=== PATIENT | male | born 1985 | race Two or more races ===

== ENCOUNTER 2018-08-26 01:07 | Inpatient (IN) | payer MEDICAID ==
[~2018-08-26] VITALS: Ht 177.8 cm; Wt 108.2 kg
[2018-08-26 01:28] LABS: EOSINOPHILS % (AUTO) 4.8 % (1.0-6.0); HEMOGLOBIN 13.2 g/dL (13.5-17.5); LYMPHOCYTES # (AUTO) 1.8 K/uL (1.0-4.8); MEAN CORPUSCULAR HEMOGLOBIN 28.1 pg (26.0-34.0); MEAN CORPUSCULAR VOLUME 85 fL (80-100); MONOCYTES % (AUTO) 12.3 % (2.0-9.0); NEUTROPHILS # (AUTO) 4.7 K/uL (1.8-7.7); NEUTROPHILS % (AUTO) 58.9 % (40.0-70.0); PLATELET COUNT (AUTO) 216 K/uL (150-450)
[2018-08-26 01:38] LABS: ANION GAP 7 mmol/L (8-16); CALCIUM, TOTAL 8.3 mg/dL (8.8-10.5); CARBON DIOXIDE 27 mmol/L (22-29); CHLORIDE 107 mmol/L (98-107); CREATININE 0.82 mg/dL (0.60-1.30); GLOMERULAR FILTR. RATE CALC > 60 mL/min (>60); GLUCOSE,RANDOM 116 mg/dL (70-110); POTASSIUM 3.9 mmol/L (3.5-5.1); SODIUM SERUM 141 mmol/L (136-145); UREA NITROGEN, BLOOD 15 mg/dL (7-18)
[2018-08-26 01:43] LABS: ACETAMINOPHEN < 2 mcg/mL (10-30); ALANINE AMINOTRANSFERASE 71 U/L (12-78); ALBUMIN 3.5 g/dL (3.4-5.0); ALKALINE PHOSPHATASE 92 U/L (46-116); ASPARTATE AMINOTRANSFERASE 28 U/L (15-37); BILIRUBIN,TOTAL 0.2 mg/dL (0.1-1.0); TOTAL PROTEIN, SERUM 6.7 g/dL (6.4-8.2)
[2018-08-26] MEDS ORDERED: SODIUM CHLORIDE 0.9% 1,000 ML IV ONE (01:45)
[2018-08-26 01:53] LABS: SALICYLATE 1.2 mg/dL (2.8-20.0)
[2018-08-26] MEDS ORDERED: HALOPERIDOL 5 MG TABLET PO PRN (03:00)
[2018-08-26] MEDS ORDERED: ZOLPIDEM TARTRATE 10 MG TABLET PO PRN (03:00)
[2018-08-26 04:14] LABS: APPEARANCE,URINE CLEAR (CLEAR); BILIRUBIN,URINE NEGATIVE (NEGATIVE); GLUCOSE, URINE (UA) NEGATIVE (NEGATIVE); KETONES,URINE NEGATIVE (NEGATIVE); LEUKOCYTE ESTERASE ,URINE NEGATIVE (NEGATIVE); NITRATE,URINE NEGATIVE (NEGATIVE); OCCULT BLOOD,URINE NEGATIVE (NEGATIVE); PH,URINE 5.5 (5.0-8.0); PROTEIN,URINE NEGATIVE (NEGATIVE); UROBILINOGEN,URINE 0.2 mg/dL (<=1.0)
[2018-08-26 04:18] LABS: AMPHET/METH SCREEN,URINE NEGATIVE (NEGATIVE); BARBITURATE SCREEN, URINE NEGATIVE (NEGATIVE); BENZODIAZEPINES SCREEN,URINE NEGATIVE (NEGATIVE); CANNABINOID SCREEN,URINE NEGATIVE (NEGATIVE); COCAINE SCREEN,URINE NEGATIVE (NEGATIVE); METHADONE SCREEN, URINE NEGATIVE (NEGATIVE); OPIATE SCREEN,URINE NEGATIVE (NEGATIVE); PHENCYCLIDINE SCREEN,URINE NEGATIVE (NEGATIVE)
[2018-08-26 05:39] VITALS: BP 134/82
[2018-08-26 08:36] VITALS: BP 131/64
[2018-08-26] MEDS: SERTRALINE HCL 50 MG TABLET PO SCH (15:30)
[2018-08-26] MEDS: IBUPROFEN 400 MG TABLET PO PRN (16:21)
[2018-08-26 16:56] VITALS: BP 132/78
[2018-08-27 00:29] VITALS: BP 134/80
[2018-08-27] MEDS: IBUPROFEN 400 MG TABLET PO PRN ×2 (00:30→08:44)
[2018-08-27] MEDS: LORazepam 2 MG TABLET PO PRN (01:30)
[2018-08-27 07:03] LABS: HEMOGLOBIN A1C 5.3 % (4.5-6.2)
[2018-08-27 07:13] LABS: CHOL/HDL RATIO 2.7 (4.2-7.3); FREE T4 (FREE THYROXINE) 0.77 ng/dL (0.76-1.46); THYROID STIMULATING HORMONE 1.13 uIU/mL (0.36-3.74)
[2018-08-27 08:12] VITALS: BP 125/86
[2018-08-27] MEDS: SERTRALINE HCL 50 MG TABLET PO SCH (08:19)
[2018-08-27 08:40] VITALS: BP 125/86
[2018-08-27] MEDS: PHENYTOIN 100 MG/4 ML SUSPENSION UDCUP PO SCH (16:28)
[2018-08-27] MEDS: FLUTICASONE PROPIONATE 50 MCG/SPRAY 16 GM NASAL SPRAY NASAL SCH (16:28)
[2018-08-27] MEDS: GABAPENTIN 300 MG CAPSULE PO SCH (16:29)
[2018-08-27] MEDS: LevETIRAcetam 500 MG TABLET PO SCH (16:29)
[2018-08-27 16:52] VITALS: BP 132/80
[2018-08-27 20:09] VITALS: BP 126/72
[2018-08-27] MEDS: IBUPROFEN 600 MG TABLET PO PRN (20:09)
[2018-08-28 07:13] LABS: BASOPHILS % (AUTO) 0.8 % (0.0-2.0); EOSINOPHILS % (AUTO) 5.1 % (1.0-6.0); HEMATOCRIT 42.1 % (41-53); HEMOGLOBIN 14.1 g/dL (13.5-17.5); LYMPHOCYTES # (AUTO) 1.6 K/uL (1.0-4.8); LYMPHOCYTES % (AUTO) 27.2 % (22.0-44.0); MEAN CORPUSCULAR HEMOGLOBIN 28.7 pg (26.0-34.0); MEAN CORPUSCULAR HGB CONC 33.6 G/dL (31.0-37.0); MEAN CORPUSCULAR VOLUME 86 fL (80-100); MONOCYTES # (AUTO) 0.8 K/uL (0.1-1.0); MONOCYTES % (AUTO) 14.3 % (2.0-9.0); NEUTROPHILS # (AUTO) 3.1 K/uL (1.8-7.7); NEUTROPHILS % (AUTO) 52.6 % (40.0-70.0); PLATELET COUNT (AUTO) 225 K/uL (150-450); RED BLOOD CELL COUNT(AUTO) 4.92 MIL/uL (4.50-5.90); RED CELL DISTRIBUTION WIDTH 12.6 % (11.5-14.5)
[2018-08-28 07:25] LABS: ALANINE AMINOTRANSFERASE 59 U/L (12-78); ALBUMIN 3.7 g/dL (3.4-5.0); ALKALINE PHOSPHATASE 104 U/L (46-116); AMYLASE 48 U/L (25-115); ANION GAP 7 mmol/L (8-16); ASPARTATE AMINOTRANSFERASE 23 U/L (15-37); BILIRUBIN,TOTAL 0.3 mg/dL (0.1-1.0); CALCIUM, TOTAL 8.9 mg/dL (8.8-10.5); CARBON DIOXIDE 28 mmol/L (22-29); CHLORIDE 101 mmol/L (98-107); CREATININE 0.75 mg/dL (0.60-1.30); GLOMERULAR FILTR. RATE CALC > 60 mL/min (>60); GLUCOSE,RANDOM 105 mg/dL (70-110); LIPASE 146 U/L (73-393); SODIUM SERUM 136 mmol/L (136-145); UREA NITROGEN, BLOOD 16 mg/dL (7-18)
[2018-08-28 07:40] LABS: TOTAL PROTEIN, SERUM 6.9 g/dL (6.4-8.2)
[2018-08-28] MEDS: LevETIRAcetam 500 MG TABLET PO SCH ×2 (09:00→16:55)
[2018-08-28] MEDS: SERTRALINE HCL 50 MG TABLET PO SCH (09:00)
[2018-08-28] MEDS: PHENYTOIN 100 MG/4 ML SUSPENSION UDCUP PO SCH ×3 (09:00→16:54)
[2018-08-28] MEDS: GABAPENTIN 300 MG CAPSULE PO SCH ×3 (09:00→16:55)
[2018-08-28] MEDS: LORazepam 2 MG TABLET PO PRN (09:00)
[2018-08-28] MEDS: FLUTICASONE PROPIONATE 50 MCG/SPRAY 16 GM NASAL SPRAY NASAL SCH ×2 (09:00→16:54)
[2018-08-28 09:45] VITALS: BP 121/69
[2018-08-28] MEDS: IBUPROFEN 600 MG TABLET PO PRN ×2 (09:47→20:57)
[2018-08-28 16:56] VITALS: BP 117/92
[2018-08-28] MEDS: TraMADol HCL 50 MG TABLET PO PRN ×2 (16:56→23:44)
[2018-08-28 20:57] VITALS: BP 120/48
[2018-08-28 22:52] VITALS: BP 117/92
[2018-08-28 23:45] VITALS: BP 132/87
[2018-08-29 01:40] VITALS: BP 130/79
[2018-08-29] MEDS: ACETAMINOPHEN 325 MG TABLET PO PRN ×2 (01:41→16:51)
[2018-08-29 03:45] VITALS: BP 132/81
[2018-08-29] MEDS: IBUPROFEN 600 MG TABLET PO PRN ×2 (03:47→15:02)
[2018-08-29] MEDS: TraMADol HCL 50 MG TABLET PO PRN ×3 (07:28→19:28)
[2018-08-29] MEDS: GABAPENTIN 300 MG CAPSULE PO SCH ×3 (09:00→16:49)
[2018-08-29] MEDS: SERTRALINE HCL 100 MG TABLET PO SCH (09:00)
[2018-08-29] MEDS: FLUTICASONE PROPIONATE 50 MCG/SPRAY 16 GM NASAL SPRAY NASAL SCH ×2 (09:00→17:22)
[2018-08-29] MEDS: PHENYTOIN 100 MG/4 ML SUSPENSION UDCUP PO SCH ×3 (09:00→16:49)
[2018-08-29] MEDS: LevETIRAcetam 500 MG TABLET PO SCH ×2 (09:01→16:49)
[2018-08-29 09:07] VITALS: BP 116/72
[2018-08-29 13:30] VITALS: BP 132/75
[2018-08-29 19:33] VITALS: BP 151/92
[2018-08-29] MEDS: LORazepam 2 MG TABLET PO PRN (20:28)
[2018-08-30 03:28] VITALS: BP 132/100
[2018-08-30] MEDS: TraMADol HCL 50 MG TABLET PO PRN ×4 (03:28→22:37)
[2018-08-30 06:35] VITALS: BP 130/86
[2018-08-30] MEDS: ACETAMINOPHEN 325 MG TABLET PO PRN (06:36)
[2018-08-30] MEDS: FLUTICASONE PROPIONATE 50 MCG/SPRAY 16 GM NASAL SPRAY NASAL SCH ×2 (09:00→17:20)
[2018-08-30] MEDS: SERTRALINE HCL 100 MG TABLET PO SCH (09:00)
[2018-08-30] MEDS: GABAPENTIN 300 MG CAPSULE PO SCH ×3 (09:02→17:20)
[2018-08-30] MEDS: LevETIRAcetam 500 MG TABLET PO SCH ×2 (09:02→17:20)
[2018-08-30] MEDS: PHENYTOIN 100 MG/4 ML SUSPENSION UDCUP PO SCH ×3 (09:03→17:20)
[2018-08-30 09:14] VITALS: BP 141/79
[2018-08-30 09:30] VITALS: BP 141/79
[2018-08-30] MEDS: LORazepam 2 MG TABLET PO PRN (13:09)
[2018-08-30] MEDS: IBUPROFEN 600 MG TABLET PO PRN (15:12)
[2018-08-30] MEDS ORDERED: LORazepam 2 MG/ML VIAL ONE (15:25)
[2018-08-30] MEDS ORDERED: HALOPERIDOL LACTATE 5 MG/ML VIAL ONE (15:26)
[2018-08-30] MEDS ORDERED: DiphenhydrAMINE HCL 50 MG/ML VIAL ONE (15:26)
[2018-08-30] MEDS ORDERED: LORazepam 2 MG/ML VIAL IM ONE (15:30)
[2018-08-30] MEDS ORDERED: HALOPERIDOL LACTATE 5 MG/ML VIAL IM ONE (15:30)
[2018-08-30] MEDS ORDERED: DiphenhydrAMINE HCL 50 MG/ML VIAL IM ONE (15:30)
[2018-08-30] MEDS: LITHIUM CARBONATE 300 MG CAPSULE PO SCH (20:19)
[2018-08-30 22:37] VITALS: BP 139/95
[2018-08-31] MEDS: IBUPROFEN 600 MG TABLET PO PRN ×2 (01:13→23:56)
[2018-08-31 01:14] VITALS: BP 133/85
[2018-08-31] MEDS: ACETAMINOPHEN 325 MG TABLET PO PRN ×2 (02:17→17:05)
[2018-08-31] MEDS: GABAPENTIN 300 MG CAPSULE PO SCH ×3 (08:47→16:06)
[2018-08-31] MEDS: TraMADol HCL 50 MG TABLET PO PRN ×2 (08:50→14:58)
[2018-08-31] MEDS: LevETIRAcetam 500 MG TABLET PO SCH ×2 (09:00→16:06)
[2018-08-31] MEDS: FLUTICASONE PROPIONATE 50 MCG/SPRAY 16 GM NASAL SPRAY NASAL SCH ×2 (09:00→16:06)
[2018-08-31] MEDS: PHENYTOIN 100 MG/4 ML SUSPENSION UDCUP PO SCH ×3 (09:00→16:06)
[2018-08-31] MEDS ORDERED: SERTRALINE HCL 50 MG TABLET PO SCH (09:00)
[2018-08-31] MEDS ORDERED: TraMADol HCL 50 MG TABLET PO PRN (15:30)
[2018-08-31 15:55] VITALS: BP 142/95
[2018-08-31 19:01] VITALS: BP 149/90
[2018-08-31] MEDS ORDERED: TraMADol HCL 50 MG TABLET PO ONE (19:39)
[2018-08-31] MEDS: LITHIUM CARBONATE 300 MG CAPSULE PO SCH (20:18)
[2018-08-31 23:58] VITALS: BP 138/81
[2018-09-01] MEDS: TraMADol HCL 50 MG TABLET PO PRN ×4 (00:57→19:56)
[2018-09-01] MEDS: GABAPENTIN 300 MG CAPSULE PO SCH ×3 (07:44→16:12)
[2018-09-01] MEDS: LevETIRAcetam 500 MG TABLET PO SCH ×2 (07:44→16:12)
[2018-09-01] MEDS: FLUTICASONE PROPIONATE 50 MCG/SPRAY 16 GM NASAL SPRAY NASAL SCH ×2 (07:46→16:11)
[2018-09-01] MEDS: PHENYTOIN 100 MG/4 ML SUSPENSION UDCUP PO SCH ×3 (07:46→16:12)
[2018-09-01] MEDS: IBUPROFEN 600 MG TABLET PO PRN (09:33)
[2018-09-01 16:13] VITALS: BP 133/94
[2018-09-01] MEDS: ACETAMINOPHEN 325 MG TABLET PO PRN (16:13)
[2018-09-01] MEDS: LITHIUM CARBONATE 300 MG CAPSULE PO SCH (21:22)
[2018-09-02 02:10] VITALS: BP 134/85
[2018-09-02] MEDS: TraMADol HCL 50 MG TABLET PO PRN ×4 (02:10→21:04)
[2018-09-02] MEDS: PHENYTOIN 100 MG/4 ML SUSPENSION UDCUP PO SCH ×3 (08:24→15:58)
[2018-09-02] MEDS: FLUTICASONE PROPIONATE 50 MCG/SPRAY 16 GM NASAL SPRAY NASAL SCH ×2 (08:24→15:56)
[2018-09-02] MEDS: LevETIRAcetam 500 MG TABLET PO SCH ×2 (08:24→15:56)
[2018-09-02] MEDS: GABAPENTIN 300 MG CAPSULE PO SCH ×3 (08:24→15:56)
[2018-09-02 08:28] VITALS: BP 131/76
[2018-09-02] MEDS ORDERED: LITH300C3 PO (14:32)
[2018-09-02] MEDS ORDERED: ARIP400S3 IM (14:32)
[2018-09-02] MEDS ORDERED: GABA-531 PO (14:32)
[2018-09-02] MEDS ORDERED: FLUT16H NASAL (14:40)
[2018-09-02] MEDS ORDERED: PHENY100 PO (14:40)
[2018-09-02] MEDS ORDERED: LEVE500T53 PO (14:40)
[2018-09-02 16:00] VITALS: BP 150/70
[2018-09-02] MEDS: LITHIUM CARBONATE 300 MG CAPSULE PO SCH (21:01)
[2018-09-02 21:06] VITALS: BP 139/65
[2018-09-03] MEDS: TraMADol HCL 50 MG TABLET PO PRN ×2 (06:27→12:27)
[2018-09-03 06:28] VITALS: BP 127/71
[2018-09-03] MEDS: PHENYTOIN 100 MG/4 ML SUSPENSION UDCUP PO SCH ×2 (08:36→12:22)
[2018-09-03] MEDS: GABAPENTIN 300 MG CAPSULE PO SCH ×2 (08:36→12:21)
[2018-09-03] MEDS: LevETIRAcetam 500 MG TABLET PO SCH (08:37)
[2018-09-03] MEDS: LORazepam 2 MG TABLET PO PRN (08:37)
[2018-09-03] MEDS: FLUTICASONE PROPIONATE 50 MCG/SPRAY 16 GM NASAL SPRAY NASAL SCH (08:37)
[2018-09-03 10:39] VITALS: BP 119/93
[2018-09-03] MEDS ORDERED: LevETIRAcetam 500 MG TABLET PO ONE (13:30)
[2018-09-05] MEDS ORDERED: ARIPiprazole ER SUSPENSION 400 MG PRE-FILLED DUAL CHAMBER SYRINGE IM SCH (09:00)
== END 2018-09-03 14:24 | disposition home or self-care (01) | DRG 751 ==
LOC: EMS 01:07 → 3EC 05:00 → 3EI 08-27 15:30 → 3EC 08-30 15:58
PROVIDERS: ADMIT Psychiatry & Neurology Psychiatry; ATTEND Psychiatry & Neurology Psychiatry
DX: F33.3 Major depressive disorder, recurrent, severe with psychotic symptoms (principal); G40.909 Epilepsy, unspecified, not intractable, without status epilepticus; D64.9 Anemia, unspecified; F10.10 Alcohol abuse, uncomplicated; F12.90 Cannabis use, unspecified, uncomplicated; F17.210 Nicotine dependence, cigarettes, uncomplicated; T39.1X2A Poisoning by 4-Aminophenol derivatives, intentional self-harm, initial encounter; Y92.89 Other specified places as the place of occurrence of the external cause; Z90.49 Acquired absence of other specified parts of digestive tract; Z91.5 Personal history of self-harm; Z79.899 Other long term (current) drug therapy; Z28.21 Immunization not carried out because of patient refusal
CPT/HCPCS: 83036; 84439; 84443; 93005; 96360; G0480; G0481; J1200; J1630; J2060; J7030

== ENCOUNTER 2018-10-29 21:52 | Emergency (ER) | payer MEDICAID ==
[~2018-10-29] VITALS: Ht 177.8 cm; Wt 95.5 kg
[~2018-10-29 21:52] MED LIST: ARIP400S3 IM; FLUT16H NASAL; GABA-531 PO; LEVE500T53 PO; LITH300C3 PO; PHENY100 PO
[2018-10-29 22:18] VITALS: BP 150/94
[2018-10-29 22:47] LABS: BASOPHILS % (AUTO) 0.9 % (0.0-2.0); EOSINOPHILS % (AUTO) 2.5 % (1.0-6.0); HEMATOCRIT 43.7 % (41-53); LYMPHOCYTES # (AUTO) 1.6 K/uL (1.0-4.8); LYMPHOCYTES % (AUTO) 14.9 % (22.0-44.0); MEAN CORPUSCULAR HEMOGLOBIN 28.4 pg (26.0-34.0); MEAN CORPUSCULAR HGB CONC 34.2 G/dL (31.0-37.0); MEAN CORPUSCULAR VOLUME 83 fL (80-100); MONOCYTES # (AUTO) 0.8 K/uL (0.1-1.0); MONOCYTES % (AUTO) 7.4 % (2.0-9.0); NEUTROPHILS # (AUTO) 7.7 K/uL (1.8-7.7); NEUTROPHILS % (AUTO) 74.3 % (40.0-70.0); PLATELET COUNT (AUTO) 343 K/uL (150-450); RED BLOOD CELL COUNT(AUTO) 5.27 MIL/uL (4.50-5.90)
[2018-10-29 22:57] LABS: ANION GAP 7 mmol/L (8-16); CALCIUM, TOTAL 9.5 mg/dL (8.8-10.5); CARBON DIOXIDE 31 mmol/L (22-29); CHLORIDE 105 mmol/L (98-107); CREATININE 1.27 mg/dL (0.60-1.30); GLOMERULAR FILTR. RATE CALC > 60 mL/min (>60); GLUCOSE,RANDOM 120 mg/dL (70-110); POTASSIUM 4.1 mmol/L (3.5-5.1); SODIUM SERUM 143 mmol/L (136-145); UREA NITROGEN, BLOOD 16 mg/dL (7-18)
[2018-10-29 23:05] LABS: ALANINE AMINOTRANSFERASE 68 U/L (12-78); ALKALINE PHOSPHATASE 105 U/L (46-116); ASPARTATE AMINOTRANSFERASE 28 U/L (15-37); BILIRUBIN,TOTAL 0.3 mg/dL (0.1-1.0); LIPASE 214 U/L (73-393); TOTAL PROTEIN, SERUM 7.7 g/dL (6.4-8.2)
== END 2018-10-30 01:38 | disposition left against medical advice (07) ==
LOC: EMS 21:52
DX: R10.9 Unspecified abdominal pain (principal); Z53.21 Procedure and treatment not carried out due to patient leaving prior to being seen by health care provider

== ENCOUNTER 2018-11-11 10:08 | Emergency (ER) | payer MEDICAID ==
[~2018-11-11] VITALS: Ht 175.3 cm; Wt 95.0 kg
[2018-11-11 10:25] VITALS: BP 133/84
== END 2018-11-11 11:01 | disposition left against medical advice (07) ==
LOC: EMS 10:10
DX: S61.012A Laceration without foreign body of left thumb without damage to nail, initial encounter (principal); F91.9 Conduct disorder, unspecified; F32.9 Major depressive disorder, single episode, unspecified; X58.XXXA Exposure to other specified factors, initial encounter; Y93.89 Activity, other specified; Y92.89 Other specified places as the place of occurrence of the external cause; Y99.8 Other external cause status

== ENCOUNTER 2019-07-18 06:31 | Inpatient (IN) | payer MEDICAID ==
[~2019-07-18] VITALS: Ht 175.3 cm; Wt 98.0 kg
[2019-07-18 07:58] VITALS: BP 149/98
[2019-07-18 08:50] VITALS: BP 148/86
[2019-07-18] MEDS: HALOPERIDOL 5 MG TABLET PO PRN ×2 (08:59→16:48)
[2019-07-18] MEDS: LORazepam 2 MG TABLET PO PRN ×2 (08:59→16:49)
[2019-07-18] MEDS: ARIPiprazole 15 MG TABLET PO SCH (12:30)
[2019-07-18 16:14] VITALS: BP 148/76
[2019-07-18] MEDS: LITHIUM CARBONATE 300 MG CAPSULE PO SCH (16:49)
[2019-07-18] MEDS ORDERED: LOPERAMIDE HCL 2 MG CAPSULE PO PRN (17:15)
[2019-07-18] MEDS ORDERED: BENZOCAINE/MENTHOL LOZENGE MM PRN (17:15)
[2019-07-18] MEDS ORDERED: BACITRACIN 28.4 GM OINTMENT TP PRN (17:15)
[2019-07-18] MEDS ORDERED: DOCUSATE SODIUM 100 MG CAPSULE PO PRN (17:15)
[2019-07-18] MEDS ORDERED: OMEPRAZOLE 20 MG CAPSULE PO PRN (17:15)
[2019-07-18] MEDS ORDERED: MAGNESIUM HYDROXIDE SUSPENSION 30 ML UDCUP PO PRN (17:15)
[2019-07-18] MEDS ORDERED: ONDANSETRON HCL 4 MG TABLET PO PRN (17:15)
[2019-07-18] MEDS ORDERED: PETROLATUM,WHITE 28 GM JELLY TP PRN (17:15)
[2019-07-18] MEDS ORDERED: ALBUTEROL SULFATE HFA 90 MCG/PUFF 8 GM INHALER IH PRN (17:15)
[2019-07-18] MEDS ORDERED: CloNIDine HCL 0.1 MG TABLET PO PRN (17:15)
[2019-07-18] MEDS: PHENYTOIN SODIUM 100 MG ER CAPSULE PO SCH (17:38)
[2019-07-18] MEDS: LevETIRAcetam 500 MG TABLET PO SCH (17:39)
[2019-07-19] VITALS (11 sets, daily range): BP systolic 115–146; BP diastolic 61–97
[2019-07-19] MEDS: IBUPROFEN 600 MG TABLET PO PRN ×3 (01:30→22:31)
[2019-07-19 08:21] LABS: BASOPHILS % (AUTO) 0.4 % (0.0-2.0); EOSINOPHILS % (AUTO) 3.5 % (1.0-6.0); HEMATOCRIT 47.3 % (41-53); HEMOGLOBIN 15.4 g/dL (13.5-17.5); LYMPHOCYTES # (AUTO) 2.6 K/uL (1.0-4.8); LYMPHOCYTES % (AUTO) 28.9 % (22.0-44.0); MEAN CORPUSCULAR HEMOGLOBIN 28.1 pg (26.0-34.0); MEAN CORPUSCULAR HGB CONC 32.5 G/dL (31.0-37.0); MEAN CORPUSCULAR VOLUME 87 fL (80-100); MONOCYTES # (AUTO) 0.8 K/uL (0.1-1.0); MONOCYTES % (AUTO) 9.2 % (2.0-9.0); NEUTROPHILS # (AUTO) 5.1 K/uL (1.8-7.7); PLATELET COUNT (AUTO) 313 K/uL (150-450); RED BLOOD CELL COUNT(AUTO) 5.46 MIL/uL (4.50-5.90); RED CELL DISTRIBUTION WIDTH 14.9 % (11.5-14.5)
[2019-07-19 08:33] LABS: APPEARANCE,URINE CLEAR (CLEAR); BILIRUBIN,URINE NEGATIVE (NEGATIVE); GLUCOSE, URINE (UA) NEGATIVE (NEGATIVE); KETONES,URINE NEGATIVE (NEGATIVE); LEUKOCYTE ESTERASE ,URINE NEGATIVE (NEGATIVE); NITRATE,URINE NEGATIVE (NEGATIVE); OCCULT BLOOD,URINE NEGATIVE (NEGATIVE); PROTEIN,URINE NEGATIVE (NEGATIVE); UROBILINOGEN,URINE 0.2 mg/dL (<=1.0)
[2019-07-19 08:38] LABS: AMPHET/METH SCREEN,URINE NEGATIVE (NEGATIVE); BARBITURATE SCREEN, URINE NEGATIVE (NEGATIVE); BENZODIAZEPINES SCREEN,URINE NEGATIVE (NEGATIVE); CANNABINOID SCREEN,URINE NEGATIVE (NEGATIVE); COCAINE SCREEN,URINE NEGATIVE (NEGATIVE); METHADONE SCREEN, URINE NEGATIVE (NEGATIVE); OPIATE SCREEN,URINE NEGATIVE (NEGATIVE); PHENCYCLIDINE SCREEN,URINE NEGATIVE (NEGATIVE)
[2019-07-19 08:43] LABS: ALANINE AMINOTRANSFERASE 54 U/L (12-78); ALBUMIN 3.9 g/dL (3.4-5.0); ALKALINE PHOSPHATASE 130 U/L (46-116); ANION GAP 7 mmol/L (8-16); ASPARTATE AMINOTRANSFERASE 21 U/L (15-37); BILIRUBIN,TOTAL 0.2 mg/dL (0.1-1.0); CALCIUM, TOTAL 9.7 mg/dL (8.8-10.5); CARBON DIOXIDE 28 mmol/L (22-29); CHLORIDE 104 mmol/L (98-107); CHOL/HDL RATIO 3.6 (4.2-7.3); CHOLESTEROL 199 mg/dL (131-200); CREATININE 1.01 mg/dL (0.60-1.30); GLOMERULAR FILTR. RATE CALC > 60 mL/min (>60); GLUCOSE,RANDOM 89 mg/dL (70-110); HDL CHOLESTEROL 55 mg/dL (40-60); LDL CHOL (CALC.) 102 mg/dL (0-130); PHENYTOIN (DILANTIN) 2.2 mcg/mL (10.0-20.0); POTASSIUM 4.5 mmol/L (3.5-5.1); SODIUM SERUM 139 mmol/L (136-145); TOTAL PROTEIN, SERUM 7.4 g/dL (6.4-8.2); TRIGLYCERIDES 212 mg/dL (15-150); UREA NITROGEN, BLOOD 19 mg/dL (7-18)
[2019-07-19] MEDS: NICOTINE 21 MG/24 HOUR PATCH TD SCH (09:00)
[2019-07-19] MEDS: ARIPiprazole 15 MG TABLET PO SCH (09:13)
[2019-07-19] MEDS: LevETIRAcetam 500 MG TABLET PO SCH ×2 (09:13→16:48)
[2019-07-19] MEDS: GABAPENTIN 300 MG CAPSULE PO SCH ×3 (09:14→16:48)
[2019-07-19] MEDS: LITHIUM CARBONATE 300 MG CAPSULE PO SCH ×2 (09:14→16:48)
[2019-07-19] MEDS: PHENYTOIN SODIUM 100 MG ER CAPSULE PO SCH ×3 (09:14→16:48)
[2019-07-19] MEDS: ACETAMINOPHEN 325 MG TABLET PO PRN (12:23)
[2019-07-19] MEDS: SULFAMETHOX/TRIMETH DS 800-160 MG/TABLET PO SCH ×2 (14:27→16:48)
[2019-07-19] MEDS: LORazepam 2 MG TABLET PO PRN (14:27)
[2019-07-19] MEDS: TERBINAFINE HCL 1% 30 GM CREAM TP SCH ×2 (16:47→17:00)
[2019-07-19] MEDS: HALOPERIDOL 5 MG TABLET PO PRN (16:48)
[2019-07-19] MEDS: MAGNESIUM SULFATE 454 GM BOX TP SCH (16:48)
[2019-07-20 00:31] VITALS: BP 138/71
[2019-07-20 08:30] VITALS: BP 111/65
[2019-07-20] MEDS: IBUPROFEN 600 MG TABLET PO PRN ×2 (08:40→13:12)
[2019-07-20] MEDS: ARIPiprazole 15 MG TABLET PO SCH (08:41)
[2019-07-20] MEDS: PHENYTOIN SODIUM 100 MG ER CAPSULE PO SCH ×3 (08:41→16:56)
[2019-07-20] MEDS: LevETIRAcetam 500 MG TABLET PO SCH ×2 (08:42→16:57)
[2019-07-20] MEDS: LITHIUM CARBONATE 300 MG CAPSULE PO SCH ×2 (08:42→16:56)
[2019-07-20] MEDS: GABAPENTIN 300 MG CAPSULE PO SCH ×3 (08:42→16:57)
[2019-07-20] MEDS: DIVALPROEX SODIUM 500 MG DR TABLET PO SCH ×2 (08:42→16:57)
[2019-07-20] MEDS: SULFAMETHOX/TRIMETH DS 800-160 MG/TABLET PO SCH ×2 (08:43→16:57)
[2019-07-20] MEDS: LORazepam 2 MG TABLET PO PRN ×2 (08:48→16:57)
[2019-07-20] MEDS: TERBINAFINE HCL 1% 30 GM CREAM TP SCH ×3 (08:54→16:56)
[2019-07-20] MEDS: MAGNESIUM SULFATE 454 GM BOX TP SCH (08:54)
[2019-07-20] MEDS: NICOTINE 21 MG/24 HOUR PATCH TD SCH (09:00)
[2019-07-20 16:32] VITALS: BP 116/76
[2019-07-20] MEDS: HALOPERIDOL 5 MG TABLET PO PRN (16:57)
[2019-07-21] MEDS: LORazepam 2 MG TABLET PO PRN ×3 (00:44→16:04)
[2019-07-21] MEDS: IBUPROFEN 600 MG TABLET PO PRN ×3 (00:45→19:54)
[2019-07-21 00:50] VITALS: BP 137/79
[2019-07-21 08:22] VITALS: BP 132/74
[2019-07-21] MEDS: DIVALPROEX SODIUM 500 MG DR TABLET PO SCH ×2 (08:22→16:03)
[2019-07-21] MEDS: LevETIRAcetam 500 MG TABLET PO SCH ×2 (08:22→16:03)
[2019-07-21] MEDS: SULFAMETHOX/TRIMETH DS 800-160 MG/TABLET PO SCH ×2 (08:22→16:03)
[2019-07-21] MEDS: ARIPiprazole 15 MG TABLET PO SCH (08:22)
[2019-07-21] MEDS: GABAPENTIN 300 MG CAPSULE PO SCH ×3 (08:22→16:03)
[2019-07-21] MEDS: PHENYTOIN SODIUM 100 MG ER CAPSULE PO SCH ×3 (08:22→16:03)
[2019-07-21] MEDS: LITHIUM CARBONATE 300 MG CAPSULE PO SCH ×2 (08:22→16:03)
[2019-07-21] MEDS: MAGNESIUM SULFATE 454 GM BOX TP SCH (08:23)
[2019-07-21] MEDS: NICOTINE 21 MG/24 HOUR PATCH TD SCH (08:30)
[2019-07-21] MEDS: TERBINAFINE HCL 1% 30 GM CREAM TP SCH ×2 (08:53→16:03)
[2019-07-21 16:00] VITALS: BP 135/74
[2019-07-21] MEDS: MAG HYDROX/AL HYDROX/SIMETH ES 30 ML SUSPENSION UDCUP PO PRN ×2 (22:41→23:47)
[2019-07-22 00:10] VITALS: BP 127/76
[2019-07-22] MEDS: IBUPROFEN 600 MG TABLET PO PRN (05:57)
[2019-07-22] MEDS: LORazepam 2 MG TABLET PO PRN ×3 (08:31→21:59)
[2019-07-22] MEDS: LITHIUM CARBONATE 300 MG CAPSULE PO SCH ×2 (08:31→16:10)
[2019-07-22] MEDS: SULFAMETHOX/TRIMETH DS 800-160 MG/TABLET PO SCH ×2 (08:31→16:10)
[2019-07-22] MEDS: DIVALPROEX SODIUM 500 MG DR TABLET PO SCH ×2 (08:31→16:13)
[2019-07-22] MEDS: PHENYTOIN SODIUM 100 MG ER CAPSULE PO SCH ×3 (08:31→16:10)
[2019-07-22] MEDS: ARIPiprazole 15 MG TABLET PO SCH (08:31)
[2019-07-22] MEDS: LevETIRAcetam 500 MG TABLET PO SCH ×2 (08:31→16:10)
[2019-07-22] MEDS: GABAPENTIN 300 MG CAPSULE PO SCH ×3 (08:31→16:10)
[2019-07-22] MEDS: TERBINAFINE HCL 1% 30 GM CREAM TP SCH ×2 (08:32→16:14)
[2019-07-22] MEDS: MAGNESIUM SULFATE 454 GM BOX TP SCH (08:32)
[2019-07-22] MEDS: NICOTINE 21 MG/24 HOUR PATCH TD SCH (08:32)
[2019-07-22 08:41] VITALS: BP 131/81
[2019-07-22 16:00] VITALS: BP 123/71
[2019-07-22] MEDS: HALOPERIDOL 5 MG TABLET PO PRN (16:10)
[2019-07-23 01:44] VITALS: BP 122/78
[2019-07-23] MEDS: GABAPENTIN 300 MG CAPSULE PO SCH ×3 (08:11→16:20)
[2019-07-23] MEDS: LevETIRAcetam 500 MG TABLET PO SCH ×2 (08:12→16:20)
[2019-07-23] MEDS: SULFAMETHOX/TRIMETH DS 800-160 MG/TABLET PO SCH ×2 (08:12→16:20)
[2019-07-23] MEDS: PHENYTOIN SODIUM 100 MG ER CAPSULE PO SCH ×3 (08:13→16:29)
[2019-07-23] MEDS: NICOTINE 21 MG/24 HOUR PATCH TD SCH (08:14)
[2019-07-23] MEDS: ARIPiprazole 15 MG TABLET PO SCH (08:14)
[2019-07-23] MEDS: LITHIUM CARBONATE 300 MG CAPSULE PO SCH ×2 (08:14→16:20)
[2019-07-23] MEDS: DIVALPROEX SODIUM 500 MG DR TABLET PO SCH ×2 (08:14→16:20)
[2019-07-23] MEDS: IBUPROFEN 600 MG TABLET PO PRN ×2 (08:35→12:17)
[2019-07-23] MEDS: MAGNESIUM SULFATE 454 GM BOX TP SCH (12:13)
[2019-07-23] MEDS: TERBINAFINE HCL 1% 30 GM CREAM TP SCH ×2 (12:13→16:20)
[2019-07-23 16:11] VITALS: BP 112/87
[2019-07-23] MEDS: LORazepam 2 MG TABLET PO PRN ×2 (16:24→20:26)
[2019-07-24] MEDS: IBUPROFEN 600 MG TABLET PO PRN ×3 (00:03→20:28)
[2019-07-24 00:04] VITALS: BP 126/74
[2019-07-24] MEDS: LORazepam 2 MG TABLET PO PRN ×3 (04:57→20:29)
[2019-07-24 08:15] VITALS: BP 139/93
[2019-07-24] MEDS: LITHIUM CARBONATE 300 MG CAPSULE PO SCH ×2 (08:43→16:27)
[2019-07-24] MEDS: ARIPiprazole 15 MG TABLET PO SCH (08:43)
[2019-07-24] MEDS: GABAPENTIN 300 MG CAPSULE PO SCH ×3 (08:43→16:28)
[2019-07-24] MEDS: LevETIRAcetam 500 MG TABLET PO SCH ×2 (08:44→16:27)
[2019-07-24] MEDS: PHENYTOIN SODIUM 100 MG ER CAPSULE PO SCH ×3 (08:44→16:28)
[2019-07-24] MEDS: DIVALPROEX SODIUM 500 MG DR TABLET PO SCH ×2 (08:44→16:28)
[2019-07-24] MEDS: NICOTINE 21 MG/24 HOUR PATCH TD SCH (08:44)
[2019-07-24] MEDS: TERBINAFINE HCL 1% 30 GM CREAM TP SCH ×2 (08:44→16:27)
[2019-07-24] MEDS: SULFAMETHOX/TRIMETH DS 800-160 MG/TABLET PO SCH ×2 (08:44→16:28)
[2019-07-24] MEDS: MAGNESIUM SULFATE 454 GM BOX TP SCH (08:44)
[2019-07-24 10:36] VITALS: BP 128/82
[2019-07-24 11:36] VITALS: BP 133/88
[2019-07-24 16:00] VITALS: BP 119/79
[2019-07-24] MEDS: HALOPERIDOL 5 MG TABLET PO PRN ×2 (16:28→20:29)
[2019-07-25 00:42] VITALS: BP 114/80
[2019-07-25 08:00] VITALS: BP 159/84
[2019-07-25] MEDS: LITHIUM CARBONATE 300 MG CAPSULE PO SCH ×2 (08:40→17:03)
[2019-07-25] MEDS: ARIPiprazole 15 MG TABLET PO SCH (08:40)
[2019-07-25] MEDS: GABAPENTIN 300 MG CAPSULE PO SCH ×3 (08:40→17:03)
[2019-07-25] MEDS: DIVALPROEX SODIUM 500 MG DR TABLET PO SCH ×2 (08:40→17:03)
[2019-07-25] MEDS: PHENYTOIN SODIUM 100 MG ER CAPSULE PO SCH ×3 (08:40→17:04)
[2019-07-25] MEDS: SULFAMETHOX/TRIMETH DS 800-160 MG/TABLET PO SCH ×2 (08:40→17:03)
[2019-07-25] MEDS: LevETIRAcetam 500 MG TABLET PO SCH ×2 (08:40→17:03)
[2019-07-25] MEDS: DICLOFENAC SODIUM 1% 100 GM GEL [2GM] TP SCH ×2 (08:42→17:02)
[2019-07-25] MEDS: TERBINAFINE HCL 1% 30 GM CREAM TP SCH ×2 (08:42→17:02)
[2019-07-25] MEDS: NICOTINE 21 MG/24 HOUR PATCH TD SCH (08:55)
[2019-07-25 09:41] VITALS: BP 145/88
[2019-07-25] MEDS: IBUPROFEN 600 MG TABLET PO PRN ×2 (09:41→15:53)
[2019-07-25] MEDS: MAGNESIUM SULFATE 454 GM BOX TP SCH (09:53)
[2019-07-25] MEDS: ACETAMINOPHEN 325 MG TABLET PO PRN ×2 (12:26→18:49)
[2019-07-25] MEDS: LORazepam 2 MG TABLET PO PRN ×2 (15:34→20:49)
[2019-07-25 16:00] VITALS: BP 116/71
[2019-07-25] MEDS: HALOPERIDOL 5 MG TABLET PO PRN (17:03)
[2019-07-25] MEDS: IBUPROFEN 800 MG TABLET PO PRN (22:54)
[2019-07-26 00:52] VITALS: BP 115/77
[2019-07-26 01:09] VITALS: BP 131/82
[2019-07-26] MEDS: IBUPROFEN 600 MG TABLET PO PRN (01:09)
[2019-07-26] MEDS: ACETAMINOPHEN 325 MG TABLET PO PRN (05:42)
[2019-07-26] MEDS: TERBINAFINE HCL 1% 30 GM CREAM TP SCH ×2 (09:00→16:20)
[2019-07-26] MEDS: PHENYTOIN SODIUM 100 MG ER CAPSULE PO SCH ×3 (09:00→16:20)
[2019-07-26] MEDS: DIVALPROEX SODIUM 500 MG DR TABLET PO SCH ×2 (09:00→16:21)
[2019-07-26] MEDS: DICLOFENAC SODIUM 1% 100 GM GEL [2GM] TP SCH ×2 (09:00→16:20)
[2019-07-26] MEDS: LevETIRAcetam 500 MG TABLET PO SCH ×2 (09:00→16:20)
[2019-07-26] MEDS: NICOTINE 21 MG/24 HOUR PATCH TD SCH (09:00)
[2019-07-26] MEDS: MAGNESIUM SULFATE 454 GM BOX TP SCH (09:00)
[2019-07-26] MEDS: ARIPiprazole 15 MG TABLET PO SCH (09:00)
[2019-07-26] MEDS: LITHIUM CARBONATE 300 MG CAPSULE PO SCH ×2 (09:38→16:21)
[2019-07-26] MEDS: SULFAMETHOX/TRIMETH DS 800-160 MG/TABLET PO SCH ×2 (09:39→16:20)
[2019-07-26] MEDS: GABAPENTIN 300 MG CAPSULE PO SCH ×3 (09:39→16:20)
[2019-07-26] MEDS: IBUPROFEN 800 MG TABLET PO PRN ×2 (14:26→20:41)
[2019-07-26 16:00] VITALS: BP 135/80
[2019-07-26] MEDS: HALOPERIDOL 5 MG TABLET PO PRN ×2 (16:20→20:40)
[2019-07-26] MEDS: LORazepam 2 MG TABLET PO PRN ×2 (16:20→20:40)
[2019-07-27] MEDS: IBUPROFEN 800 MG TABLET PO PRN ×2 (03:29→20:58)
[2019-07-27 08:00] VITALS: BP 148/88
[2019-07-27 08:16] LABS: LITHIUM 0.34 mmol/L (0.60-1.20)
[2019-07-27] MEDS: SULFAMETHOX/TRIMETH DS 800-160 MG/TABLET PO SCH ×2 (08:23→16:03)
[2019-07-27] MEDS: GABAPENTIN 300 MG CAPSULE PO SCH ×3 (08:23→16:02)
[2019-07-27] MEDS: ARIPiprazole 15 MG TABLET PO SCH (08:42)
[2019-07-27] MEDS: LevETIRAcetam 500 MG TABLET PO SCH ×2 (08:42→16:03)
[2019-07-27] MEDS: PHENYTOIN SODIUM 100 MG ER CAPSULE PO SCH ×3 (08:42→16:04)
[2019-07-27] MEDS: TERBINAFINE HCL 1% 30 GM CREAM TP SCH ×2 (08:42→18:10)
[2019-07-27] MEDS: DIVALPROEX SODIUM 500 MG DR TABLET PO SCH ×2 (08:42→16:04)
[2019-07-27] MEDS: MAGNESIUM SULFATE 454 GM BOX TP SCH (08:42)
[2019-07-27] MEDS: LITHIUM CARBONATE 300 MG CAPSULE PO SCH ×2 (08:42→16:05)
[2019-07-27] MEDS: DICLOFENAC SODIUM 1% 100 GM GEL [2GM] TP SCH ×2 (08:43→18:10)
[2019-07-27 10:20] VITALS: BP 132/87
[2019-07-27] MEDS: ACETAMINOPHEN 325 MG TABLET PO PRN (10:20)
[2019-07-27] MEDS: HALOPERIDOL 5 MG TABLET PO PRN ×2 (12:54→20:41)
[2019-07-27] MEDS: LORazepam 2 MG TABLET PO PRN ×2 (12:54→20:41)
[2019-07-27] MEDS: IBUPROFEN 600 MG TABLET PO PRN (16:02)
[2019-07-27 16:05] VITALS: BP 113/68
[2019-07-27] MEDS ORDERED: MAGNESIUM SULFATE 454 GM BOX TP PRN (20:45)
[2019-07-27] MEDS: MAG HYDROX/AL HYDROX/SIMETH ES 30 ML SUSPENSION UDCUP PO PRN (20:58)
[2019-07-27] MEDS ORDERED: DIVA-78 PO (23:23)
[2019-07-28] MEDS: IBUPROFEN 800 MG TABLET PO PRN (05:40)
[2019-07-28 08:24] VITALS: BP 124/70
[2019-07-28] MEDS: LITHIUM CARBONATE 300 MG CAPSULE PO SCH (08:57)
[2019-07-28] MEDS: GABAPENTIN 300 MG CAPSULE PO SCH (08:57)
[2019-07-28] MEDS: PHENYTOIN SODIUM 100 MG ER CAPSULE PO SCH (08:57)
[2019-07-28] MEDS: ARIPiprazole 15 MG TABLET PO SCH (08:57)
[2019-07-28] MEDS: LevETIRAcetam 500 MG TABLET PO SCH (08:58)
[2019-07-28] MEDS: DIVALPROEX SODIUM 500 MG DR TABLET PO SCH (08:58)
[2019-07-28] MEDS: TERBINAFINE HCL 1% 30 GM CREAM TP SCH (08:59)
[2019-07-28] MEDS ORDERED: OMEGA-3/DHA/EPA/FISH OIL 1,000 MG CAPSULE PO SCH (09:00)
[2019-07-28] MEDS ORDERED: ARIP15TA2 PO (11:15)
[2019-07-28] MEDS: IBUPROFEN 600 MG TABLET PO PRN (11:16)
[2019-07-28] MEDS ORDERED: TOLN133P TP (11:19)
[2019-07-28] MEDS ORDERED: OMEG-135 PO (11:20)
[2019-07-28] MEDS ORDERED: DICLOFENAC SODIUM 1% 100 GM GEL [2GM] TP PRN (20:30)
== END 2019-07-28 11:55 | disposition home or self-care (01) | DRG 750 ==
LOC: B3A 08:51
PROVIDERS: ADMIT Psychiatry & Neurology Psychiatry; ATTEND Psychiatry & Neurology Psychiatry
DX: F25.9 Schizoaffective disorder, unspecified (principal); G40.909 Epilepsy, unspecified, not intractable, without status epilepticus; E66.9 Obesity, unspecified; F12.90 Cannabis use, unspecified, uncomplicated; F17.200 Nicotine dependence, unspecified, uncomplicated; S90.426A Blister (nonthermal), unspecified lesser toe(s), initial encounter; X58.XXXA Exposure to other specified factors, initial encounter; Y93.89 Activity, other specified; Z90.49 Acquired absence of other specified parts of digestive tract; Y92.89 Other specified places as the place of occurrence of the external cause; Z71.6 Tobacco abuse counseling; Z71.51 Drug abuse counseling and surveillance of drug abuser; Y99.8 Other external cause status; Z68.31 Body mass index [BMI] 31.0-31.9, adult
CPT/HCPCS: 80307; 86592

== ENCOUNTER 2019-08-21 00:09 | Inpatient (IN) | payer MEDICAID ==
[~2019-08-21] VITALS: Ht 177.8 cm; Wt 96.8 kg
[~2019-08-21 00:09] MED LIST changes: +ARIP15TA2 PO; -ARIP400S3 IM; +DIVA-78 PO; -FLUT16H NASAL; +OMEG-135 PO; +TOLN133P TP
[2019-08-21] MEDS ORDERED: QUEtiapine FUMARATE 100 MG TABLET PO PRN (02:15)
[2019-08-21 02:45] VITALS: BP 134/78
[2019-08-21] MEDS ORDERED: INFLUENZA VIRUS VACCINE QVS 2019-20 (3YR+)/PF 60 MCG/0.5 ML SYRINGE IM ONE (03:00)
[2019-08-21 07:53] LABS: HEMOGLOBIN A1C 5.5 % (4.5-6.2)
[2019-08-21 08:15] LABS: CHOL/HDL RATIO 2.6 (4.2-7.3); FREE T4 (FREE THYROXINE) 0.79 ng/dL (0.76-1.46); THYROID STIMULATING HORMONE 2.66 uIU/mL (0.36-3.74)
[2019-08-21] MEDS ORDERED: MAG HYDROX/AL HYDROX/SIMETH ES 30 ML SUSPENSION UDCUP PO PRN (08:45)
[2019-08-21] MEDS ORDERED: CloNIDine HCL 0.1 MG TABLET PO PRN (08:45)
[2019-08-21] MEDS ORDERED: LOPERAMIDE HCL 2 MG CAPSULE PO PRN (08:45)
[2019-08-21] MEDS ORDERED: ALBUTEROL SULFATE HFA 90 MCG/PUFF 8 GM INHALER IH PRN (08:45)
[2019-08-21] MEDS ORDERED: ONDANSETRON HCL 4 MG TABLET PO PRN (08:45)
[2019-08-21] MEDS ORDERED: DOCUSATE SODIUM 100 MG CAPSULE PO PRN (08:45)
[2019-08-21] MEDS ORDERED: BENZOCAINE/MENTHOL LOZENGE MM PRN (08:45)
[2019-08-21] MEDS ORDERED: BACITRACIN 28.4 GM OINTMENT TP PRN (08:45)
[2019-08-21] MEDS ORDERED: MAGNESIUM HYDROXIDE SUSPENSION 30 ML UDCUP PO PRN (08:45)
[2019-08-21] MEDS ORDERED: PETROLATUM,WHITE 28 GM JELLY TP PRN (08:45)
[2019-08-21] MEDS ORDERED: OMEPRAZOLE 20 MG CAPSULE PO PRN (08:45)
[2019-08-21] MEDS: IBUPROFEN 600 MG TABLET PO PRN (08:57)
[2019-08-21] MEDS: ACETAMINOPHEN 325 MG TABLET PO PRN (12:09)
[2019-08-21] MEDS: ARIPiprazole 15 MG TABLET PO SCH (13:07)
[2019-08-21] MEDS: GABAPENTIN 300 MG CAPSULE PO SCH ×2 (13:08→16:51)
[2019-08-21 16:00] VITALS: BP 131/72
[2019-08-21] MEDS: PHENYTOIN SODIUM 100 MG ER CAPSULE PO SCH (16:50)
[2019-08-21] MEDS: DIVALPROEX SODIUM 500 MG DR TABLET PO SCH (16:51)
[2019-08-21] MEDS: LORazepam 2 MG TABLET PO PRN (16:51)
[2019-08-21] MEDS: LevETIRAcetam 500 MG TABLET PO SCH (16:51)
[2019-08-21] MEDS: ZOLPIDEM TARTRATE 10 MG TABLET PO PRN (20:36)
[2019-08-22 04:50] VITALS: BP 136/80
[2019-08-22] MEDS: IBUPROFEN 600 MG TABLET PO PRN (04:53)
[2019-08-22] MEDS: ACETAMINOPHEN 325 MG TABLET PO PRN (06:55)
[2019-08-22 08:08] LABS: BASOPHILS % (AUTO) 0.7 % (0.0-2.0); EOSINOPHILS % (AUTO) 4.4 % (1.0-6.0); HEMATOCRIT 42.3 % (41-53); HEMOGLOBIN 14.1 g/dL (13.5-17.5); MEAN CORPUSCULAR HEMOGLOBIN 28.7 pg (26.0-34.0); MEAN CORPUSCULAR HGB CONC 33.4 G/dL (31.0-37.0); MEAN CORPUSCULAR VOLUME 86 fL (80-100); MONOCYTES # (AUTO) 0.5 K/uL (0.1-1.0); MONOCYTES % (AUTO) 6.5 % (2.0-9.0); NEUTROPHILS # (AUTO) 4.3 K/uL (1.8-7.7); NEUTROPHILS % (AUTO) 60.4 % (40.0-70.0); PLATELET COUNT (AUTO) 249 K/uL (150-450); RED BLOOD CELL COUNT(AUTO) 4.93 MIL/uL (4.50-5.90); RED CELL DISTRIBUTION WIDTH 15.2 % (11.5-14.5)
[2019-08-22 08:13] VITALS: BP 136/86
[2019-08-22 08:24] LABS: APPEARANCE,URINE CLEAR (CLEAR); BILIRUBIN,URINE NEGATIVE (NEGATIVE); GLUCOSE, URINE (UA) NEGATIVE (NEGATIVE); KETONES,URINE NEGATIVE (NEGATIVE); LEUKOCYTE ESTERASE ,URINE NEGATIVE (NEGATIVE); NITRATE,URINE NEGATIVE (NEGATIVE); OCCULT BLOOD,URINE NEGATIVE (NEGATIVE); PH,URINE 5.5 (5.0-8.0); PROTEIN,URINE NEGATIVE (NEGATIVE); UROBILINOGEN,URINE 0.2 mg/dL (<=1.0)
[2019-08-22 08:24] LABS: ALANINE AMINOTRANSFERASE 32 U/L (12-78); ALBUMIN 3.9 g/dL (3.4-5.0); ALKALINE PHOSPHATASE 112 U/L (46-116); ANION GAP 8 mmol/L (8-16); ASPARTATE AMINOTRANSFERASE 15 U/L (15-37); BILIRUBIN,TOTAL 0.2 mg/dL (0.1-1.0); CALCIUM, TOTAL 9.1 mg/dL (8.8-10.5); CARBON DIOXIDE 27 mmol/L (22-29); CHLORIDE 106 mmol/L (98-107); CREATININE 0.71 mg/dL (0.60-1.30); GLOMERULAR FILTR. RATE CALC > 60 mL/min (>60); GLUCOSE,RANDOM 91 mg/dL (70-110); POTASSIUM 4.3 mmol/L (3.5-5.1); SODIUM SERUM 141 mmol/L (136-145); TOTAL PROTEIN, SERUM 6.8 g/dL (6.4-8.2); UREA NITROGEN, BLOOD 12 mg/dL (7-18)
[2019-08-22 08:36] LABS: AMPHET/METH SCREEN,URINE NEGATIVE (NEGATIVE); BARBITURATE SCREEN, URINE NEGATIVE (NEGATIVE); BENZODIAZEPINES SCREEN,URINE NEGATIVE (NEGATIVE); CANNABINOID SCREEN,URINE NEGATIVE (NEGATIVE); COCAINE SCREEN,URINE NEGATIVE (NEGATIVE); METHADONE SCREEN, URINE NEGATIVE (NEGATIVE); OPIATE SCREEN,URINE NEGATIVE (NEGATIVE)
[2019-08-22 08:37] LABS: PHENCYCLIDINE SCREEN,URINE NEGATIVE (NEGATIVE)
[2019-08-22] MEDS: LevETIRAcetam 500 MG TABLET PO SCH ×2 (08:54→16:20)
[2019-08-22] MEDS: DIVALPROEX SODIUM 500 MG DR TABLET PO SCH ×2 (08:54→16:20)
[2019-08-22] MEDS: PHENYTOIN SODIUM 100 MG ER CAPSULE PO SCH ×3 (08:54→16:20)
[2019-08-22] MEDS: OMEGA-3/DHA/EPA/FISH OIL 1,000 MG CAPSULE PO SCH (08:54)
[2019-08-22] MEDS: ARIPiprazole 15 MG TABLET PO SCH (08:54)
[2019-08-22] MEDS: GABAPENTIN 300 MG CAPSULE PO SCH ×3 (08:54→16:20)
[2019-08-22 16:00] VITALS: BP 137/78
[2019-08-22] MEDS: LORazepam 2 MG TABLET PO PRN ×2 (16:21→20:24)
[2019-08-22] MEDS: ZOLPIDEM TARTRATE 10 MG TABLET PO PRN (20:24)
[2019-08-23 03:00] VITALS: BP 129/72
[2019-08-23 08:00] VITALS: BP 130/71
[2019-08-23] MEDS: PHENYTOIN SODIUM 100 MG ER CAPSULE PO SCH ×2 (09:08→13:01)
[2019-08-23] MEDS: GABAPENTIN 300 MG CAPSULE PO SCH ×2 (09:08→13:01)
[2019-08-23] MEDS: LevETIRAcetam 500 MG TABLET PO SCH (09:09)
[2019-08-23] MEDS: OMEGA-3/DHA/EPA/FISH OIL 1,000 MG CAPSULE PO SCH (09:09)
[2019-08-23] MEDS: DIVALPROEX SODIUM 500 MG DR TABLET PO SCH (09:09)
[2019-08-23] MEDS: ARIPiprazole 15 MG TABLET PO SCH (09:10)
[2019-08-23] MEDS: IBUPROFEN 600 MG TABLET PO PRN (13:38)
== END 2019-08-23 14:20 | disposition home or self-care (01) | DRG 750 ==
LOC: B3A 02:30
PROVIDERS: ADMIT Psychiatry & Neurology Psychiatry; ATTEND Psychiatry & Neurology Psychiatry
DX: F25.9 Schizoaffective disorder, unspecified (principal); G40.909 Epilepsy, unspecified, not intractable, without status epilepticus; R45.851 Suicidal ideations; E66.9 Obesity, unspecified; R03.0 Elevated blood-pressure reading, without diagnosis of hypertension; Z68.30 Body mass index [BMI] 30.0-30.9, adult; Z28.21 Immunization not carried out because of patient refusal
CPT/HCPCS: 80307; 83036; 84439; 84443; 87081; 90686

== ENCOUNTER 2019-08-25 01:30 | Emergency (ER) | payer MEDICAID, OTHER ==
[~2019-08-25] VITALS: Ht 175.3 cm; Wt 9.6 kg
[~2019-08-25 01:30] MED LIST changes: -LITH300C3 PO; -TOLN133P TP
[2019-08-25 01:42] VITALS: BP 144/86
== END 2019-08-25 03:00 | disposition left against medical advice (07) ==
LOC: EMS 01:30
DX: R10.9 Unspecified abdominal pain (principal); Z53.21 Procedure and treatment not carried out due to patient leaving prior to being seen by health care provider

== ENCOUNTER 2019-09-08 17:23 | Emergency (ER) | payer OTHER ==
[~2019-09-08] VITALS: Ht 170.2 cm; Wt 90.9 kg
[2019-09-08 19:23] VITALS: BP 137/98
== END 2019-09-08 20:15 | disposition left against medical advice (07) ==
LOC: EMS 17:30
DX: R10.30 Lower abdominal pain, unspecified (principal); Z53.21 Procedure and treatment not carried out due to patient leaving prior to being seen by health care provider

== ENCOUNTER 2019-09-10 09:51 | Inpatient (IN) | payer MEDICAID, OTHER ==
[~2019-09-10] VITALS: Ht 177.8 cm; Wt 211.3 kg
[2019-09-10] MEDS ORDERED: ZOLPIDEM TARTRATE 10 MG TABLET PO PRN (10:15)
[2019-09-10] MEDS ORDERED: LORazepam 2 MG TABLET PO PRN (10:15)
[2019-09-10] MEDS ORDERED: OLANZapine 5 MG RAPDIS TABLET PO PRN (10:15)
[2019-09-10] MEDS ORDERED: INFLUENZA VIRUS VACCINE QVS 2019-20 (3YR+)/PF 60 MCG/0.5 ML SYRINGE IM ONE (13:15)
[2019-09-10 14:50] VITALS: BP 124/74
[2019-09-10] MEDS ORDERED: ACETAMINOPHEN 325 MG TABLET PO PRN (15:30)
[2019-09-10] MEDS ORDERED: PROMETHAZINE HCL 25 MG TABLET PO PRN (16:45)
[2019-09-10] MEDS ORDERED: MAGNESIUM HYDROXIDE SUSPENSION 30 ML UDCUP PO PRN (16:45)
[2019-09-10] MEDS ORDERED: MAG HYDROX/AL HYDROX/SIMETH ES 30 ML SUSPENSION UDCUP PO PRN (16:45)
[2019-09-10] MEDS ORDERED: HydrOXYzine PAMOATE 50 MG CAPSULE PO PRN (16:45)
[2019-09-10] MEDS ORDERED: TUBERCULIN, PURIFIED PROTEIN DERIVATIVE 5 TU/0.1 ML SYRINGE ID ONE (16:45)
[2019-09-10] MEDS ORDERED: LOPERAMIDE HCL 2 MG CAPSULE PO PRN (16:45)
[2019-09-10] MEDS ORDERED: GuaiFENesin/D-METHORPHAN [SUGAR-FREE] 200-20MG/10 ML SYRUP UDCUP PO PRN (16:45)
[2019-09-10 16:55] VITALS: BP 131/82
[2019-09-10] MEDS: PHENYTOIN SODIUM 100 MG ER CAPSULE PO SCH (17:00)
[2019-09-10] MEDS: LevETIRAcetam 500 MG TABLET PO SCH (17:00)
[2019-09-10] MEDS: THIAMINE HCL 100 MG TABLET PO SCH (17:05)
[2019-09-10] MEDS: GABAPENTIN 300 MG CAPSULE PO SCH ×2 (17:05→20:11)
[2019-09-10] MEDS: IBUPROFEN 600 MG TABLET PO PRN (17:05)
[2019-09-10 17:13] VITALS: BP 129/75
[2019-09-10] MEDS: DIVALPROEX SODIUM 500 MG ER TABLET PO SCH (20:14)
[2019-09-10] MEDS ORDERED: OLANZapine 7.5 MG TABLET PO SCH (21:00)
[2019-09-10 21:24] VITALS: BP 148/84
[2019-09-11 06:07] LABS: EOSINOPHILS % (AUTO) 4.6 % (1.0-6.0); HEMATOCRIT 41.9 % (41-53); HEMOGLOBIN 13.9 g/dL (13.5-17.5); LYMPHOCYTES # (AUTO) 2.5 K/uL (1.0-4.8); LYMPHOCYTES % (AUTO) 29.3 % (22.0-44.0); MEAN CORPUSCULAR HEMOGLOBIN 28.1 pg (26.0-34.0); MEAN CORPUSCULAR HGB CONC 33.1 G/dL (31.0-37.0); MEAN CORPUSCULAR VOLUME 85 fL (80-100); MONOCYTES # (AUTO) 0.6 K/uL (0.1-1.0); MONOCYTES % (AUTO) 7.5 % (2.0-9.0); NEUTROPHILS # (AUTO) 4.8 K/uL (1.8-7.7); NEUTROPHILS % (AUTO) 57.6 % (40.0-70.0); PLATELET COUNT (AUTO) 290 K/uL (150-450); RED BLOOD CELL COUNT(AUTO) 4.94 MIL/uL (4.50-5.90); RED CELL DISTRIBUTION WIDTH 14.5 % (11.5-14.5)
[2019-09-11 06:40] LABS: ALANINE AMINOTRANSFERASE 39 U/L (12-78); ALBUMIN 3.4 g/dL (3.4-5.0); ALKALINE PHOSPHATASE 95 U/L (46-116); ANION GAP 9 mmol/L (8-16); ASPARTATE AMINOTRANSFERASE 17 U/L (15-37); BILIRUBIN,TOTAL 0.3 mg/dL (0.1-1.0); CALCIUM, TOTAL 8.8 mg/dL (8.8-10.5); CARBON DIOXIDE 24 mmol/L (22-29); CHLORIDE 109 mmol/L (98-107); CHOL/HDL RATIO 2.9 (4.2-7.3); CHOLESTEROL 129 mg/dL (131-200); CREATININE 0.87 mg/dL (0.60-1.30); FREE T4 (FREE THYROXINE) 0.73 ng/dL (0.76-1.46); GLOMERULAR FILTR. RATE CALC > 60 mL/min (>60); GLUCOSE,RANDOM 95 mg/dL (70-110); HDL CHOLESTEROL 45 mg/dL (40-60); LDL CHOL (CALC.) 55 mg/dL (0-130); POTASSIUM 3.7 mmol/L (3.5-5.1); SODIUM SERUM 142 mmol/L (136-145); THYROID STIMULATING HORMONE 1.64 uIU/mL (0.36-3.74); TOTAL PROTEIN, SERUM 6.6 g/dL (6.4-8.2); TRIGLYCERIDES 144 mg/dL (15-150); UREA NITROGEN, BLOOD 14 mg/dL (7-18)
[2019-09-11 07:09] VITALS: BP 130/90
[2019-09-11] MEDS: FOLIC ACID 1 MG TABLET PO SCH (08:38)
[2019-09-11] MEDS: PANTOPRAZOLE SODIUM 40 MG DR TABLET PO SCH (08:38)
[2019-09-11] MEDS: LevETIRAcetam 500 MG TABLET PO SCH ×2 (08:38→16:53)
[2019-09-11] MEDS: OMEGA-3/DHA/EPA/FISH OIL 1,000 MG CAPSULE PO SCH (08:38)
[2019-09-11] MEDS: GABAPENTIN 300 MG CAPSULE PO SCH ×4 (08:38→21:01)
[2019-09-11] MEDS: PHENYTOIN SODIUM 100 MG ER CAPSULE PO SCH ×3 (08:38→16:54)
[2019-09-11 08:39] VITALS: BP 132/85
[2019-09-11] MEDS: THIAMINE HCL 100 MG TABLET PO SCH ×2 (08:39→16:47)
[2019-09-11] MEDS: MULTIVITAMINS WITH MINERALS, THERAPEUTIC TABLET PO SCH (08:39)
[2019-09-11] MEDS: NALTREXONE HCL 50 MG TABLET PO SCH (08:39)
[2019-09-11 08:59] LABS: PHENYTOIN (DILANTIN) < 0.5 mcg/mL (10.0-20.0)
[2019-09-11 17:24] VITALS: BP 136/79
[2019-09-11] MEDS: DIVALPROEX SODIUM 500 MG ER TABLET PO SCH (21:00)
[2019-09-11] MEDS: OLANZapine 10 MG TABLET PO SCH (21:02)
[2019-09-11 21:37] VITALS: BP 136/75
[2019-09-11] MEDS: IBUPROFEN 600 MG TABLET PO PRN (21:37)
[2019-09-12 08:54] VITALS: BP 115/79
[2019-09-12] MEDS: GABAPENTIN 300 MG CAPSULE PO SCH ×4 (09:00→19:44)
[2019-09-12] MEDS: THIAMINE HCL 100 MG TABLET PO SCH ×2 (09:00→16:43)
[2019-09-12] MEDS: OMEGA-3/DHA/EPA/FISH OIL 1,000 MG CAPSULE PO SCH (09:00)
[2019-09-12] MEDS: MULTIVITAMINS WITH MINERALS, THERAPEUTIC TABLET PO SCH (09:00)
[2019-09-12] MEDS: PANTOPRAZOLE SODIUM 40 MG DR TABLET PO SCH (09:00)
[2019-09-12] MEDS: PHENYTOIN SODIUM 100 MG ER CAPSULE PO SCH ×3 (09:00→16:48)
[2019-09-12] MEDS ORDERED: BuPROPion HCL XL 150 MG ER TABLET PO SCH (09:00)
[2019-09-12] MEDS: LevETIRAcetam 500 MG TABLET PO SCH ×2 (09:00→16:48)
[2019-09-12] MEDS: FOLIC ACID 1 MG TABLET PO SCH (09:00)
[2019-09-12] MEDS: NALTREXONE HCL 50 MG TABLET PO SCH (09:00)
[2019-09-12 19:37] VITALS: BP 130/79
[2019-09-12] MEDS: IBUPROFEN 600 MG TABLET PO PRN (19:37)
[2019-09-12 19:45] VITALS: BP 115/64
[2019-09-12] MEDS ORDERED: OLAN10TA3 PO (20:41)
[2019-09-12] MEDS ORDERED: NALT50TA6 PO (20:41)
[2019-09-12] MEDS ORDERED: PANT40TA25 PO (20:42)
[2019-09-12] MEDS: DIVALPROEX SODIUM 500 MG ER TABLET PO SCH (20:42)
[2019-09-12] MEDS: OLANZapine 10 MG TABLET PO SCH (20:42)
== END 2019-09-12 20:55 | disposition left against medical advice (07) | DRG 750 ==
LOC: 3EI 12:05
PROVIDERS: ADMIT Psychiatry & Neurology Psychiatry; ATTEND Psychiatry & Neurology Psychiatry
DX: F25.0 Schizoaffective disorder, bipolar type (principal); R45.851 Suicidal ideations; G40.909 Epilepsy, unspecified, not intractable, without status epilepticus; K25.9 Gastric ulcer, unspecified as acute or chronic, without hemorrhage or perforation; Z65.3 Problems related to other legal circumstances; Z91.19 Patient's noncompliance with other medical treatment and regimen; Z53.29 Procedure and treatment not carried out because of patient's decision for other reasons
CPT/HCPCS: 84439; 84443; 93005; G0482

== ENCOUNTER 2019-09-26 00:47 | Inpatient (IN) | payer MEDICAID ==
[~2019-09-26] VITALS: Ht 175.3 cm; Wt 96.4 kg
[~2019-09-26 00:47] MED LIST changes: -ARIP15TA2 PO; -DIVA-78 PO; -GABA-531 PO; +NALT50TA6 PO; +OLAN10TA3 PO; -OMEG-135 PO; +PANT40TA25 PO
[2019-09-26] MEDS ORDERED: OLANZapine 5 MG RAPDIS TABLET PO PRN (03:30)
[2019-09-26] MEDS ORDERED: ZOLPIDEM TARTRATE 10 MG TABLET PO PRN (03:30)
[2019-09-26] MEDS ORDERED: LORazepam 2 MG TABLET PO PRN (03:30)
[2019-09-26 04:07] VITALS: BP 148/88
[2019-09-26 05:28] VITALS: BP 148/88
[2019-09-26 08:20] VITALS: BP 140/80
[2019-09-26] MEDS: ARIPiprazole 15 MG TABLET PO SCH (10:42)
[2019-09-26] MEDS: PHENYTOIN SODIUM 100 MG ER CAPSULE PO SCH ×2 (12:32→16:20)
[2019-09-26] MEDS ORDERED: ACETAMINOPHEN 325 MG TABLET PO PRN (14:00)
[2019-09-26] MEDS: LevETIRAcetam 500 MG TABLET PO SCH (16:20)
[2019-09-26 18:03] VITALS: BP 145/78
[2019-09-26] MEDS: IBUPROFEN 600 MG TABLET PO PRN (18:03)
[2019-09-26] MEDS ORDERED: GuaiFENesin/D-METHORPHAN [SUGAR-FREE] 200-20MG/10 ML SYRUP UDCUP PO PRN (18:45)
[2019-09-27] MEDS: PANTOPRAZOLE SODIUM 40 MG DR TABLET PO SCH (08:25)
[2019-09-27] MEDS: ARIPiprazole 15 MG TABLET PO SCH (08:25)
[2019-09-27] MEDS: PHENYTOIN SODIUM 100 MG ER CAPSULE PO SCH ×3 (08:33→17:00)
[2019-09-27] MEDS: LevETIRAcetam 500 MG TABLET PO SCH ×2 (08:34→17:00)
[2019-09-27 08:35] VITALS: BP 137/79
[2019-09-27 10:33] VITALS: BP 132/76
[2019-09-27] MEDS: IBUPROFEN 600 MG TABLET PO PRN ×2 (10:33→15:44)
[2019-09-27 15:44] VITALS: BP 145/91
[2019-09-27 16:00] VITALS: BP 140/94
[2019-09-28 07:31] LABS: BASOPHILS % (AUTO) 0.7 % (0.0-2.0); EOSINOPHILS % (AUTO) 3.5 % (1.0-6.0); HEMATOCRIT 41.1 % (41-53); LYMPHOCYTES # (AUTO) 1.9 K/uL (1.0-4.8); LYMPHOCYTES % (AUTO) 23.4 % (22.0-44.0); MEAN CORPUSCULAR HEMOGLOBIN 28.7 pg (26.0-34.0); MEAN CORPUSCULAR VOLUME 84 fL (80-100); MONOCYTES # (AUTO) 0.7 K/uL (0.1-1.0); MONOCYTES % (AUTO) 8.9 % (2.0-9.0); NEUTROPHILS # (AUTO) 5.3 K/uL (1.8-7.7); NEUTROPHILS % (AUTO) 63.5 % (40.0-70.0); PLATELET COUNT (AUTO) 278 K/uL (150-450); RED BLOOD CELL COUNT(AUTO) 4.87 MIL/uL (4.50-5.90); RED CELL DISTRIBUTION WIDTH 13.8 % (11.5-14.5)
[2019-09-28 07:54] LABS: ALANINE AMINOTRANSFERASE 31 U/L (12-78); ALBUMIN 3.3 g/dL (3.4-5.0); ALKALINE PHOSPHATASE 98 U/L (46-116); ANION GAP 4 mmol/L (8-16); ASPARTATE AMINOTRANSFERASE 13 U/L (15-37); BILIRUBIN,TOTAL 0.2 mg/dL (0.1-1.0); CALCIUM, TOTAL 8.7 mg/dL (8.8-10.5); CARBON DIOXIDE 28 mmol/L (22-29); CHLORIDE 105 mmol/L (98-107); CHOL/HDL RATIO 3.2 (4.2-7.3); CHOLESTEROL 149 mg/dL (131-200); CREATININE 0.86 mg/dL (0.60-1.30); FREE T4 (FREE THYROXINE) 0.66 ng/dL (0.76-1.46); GLOMERULAR FILTR. RATE CALC > 60 mL/min (>60); GLUCOSE,RANDOM 88 mg/dL (70-110); HDL CHOLESTEROL 46 mg/dL (40-60); LDL CHOL (CALC.) 70 mg/dL (0-130); POTASSIUM 4.3 mmol/L (3.5-5.1); SODIUM SERUM 137 mmol/L (136-145); TRIGLYCERIDES 167 mg/dL (15-150); UREA NITROGEN, BLOOD 16 mg/dL (7-18)
[2019-09-28 08:07] LABS: TOTAL PROTEIN, SERUM 6.6 g/dL (6.4-8.2)
[2019-09-28] MEDS: ARIPiprazole 15 MG TABLET PO SCH (08:41)
[2019-09-28] MEDS: PANTOPRAZOLE SODIUM 40 MG DR TABLET PO SCH (08:41)
[2019-09-28 08:48] VITALS: BP 137/86
[2019-09-28] MEDS: IBUPROFEN 600 MG TABLET PO PRN (08:48)
[2019-09-28] MEDS: LevETIRAcetam 500 MG TABLET PO SCH (09:00)
[2019-09-28] MEDS: PHENYTOIN SODIUM 100 MG ER CAPSULE PO SCH ×2 (09:00→12:33)
[2019-09-28] MEDS: GABAPENTIN 300 MG CAPSULE PO SCH ×2 (10:17→12:33)
[2019-09-28] MEDS ORDERED: GABA-531 PO (12:23)
[2019-09-28] MEDS ORDERED: ARIP10TA8 PO (12:23)
[2019-09-28] MEDS ORDERED: GABAPENTIN 300 MG CAPSULE PO SCH (13:00)
[2019-09-28] MEDS ORDERED: LEVE500T53 PO (13:23)
[2019-09-28] MEDS ORDERED: PHEN100C23 PO (13:23)
[2019-09-29] MEDS ORDERED: ARIPiprazole 10 MG TABLET PO SCH (09:00)
== END 2019-09-28 13:30 | disposition home or self-care (01) | DRG 750 ==
LOC: B2S 03:05
PROVIDERS: ADMIT Psychiatry & Neurology Psychiatry; ATTEND Psychiatry & Neurology Psychiatry
DX: F25.0 Schizoaffective disorder, bipolar type (principal); R56.9 Unspecified convulsions; K21.9 Gastro-esophageal reflux disease without esophagitis; F41.9 Anxiety disorder, unspecified; K27.9 Peptic ulcer, site unspecified, unspecified as acute or chronic, without hemorrhage or perforation; Z79.899 Other long term (current) drug therapy; Z87.11 Personal history of peptic ulcer disease; Z91.19 Patient's noncompliance with other medical treatment and regimen; Z91.5 Personal history of self-harm; Z90.49 Acquired absence of other specified parts of digestive tract
CPT/HCPCS: 84439; 84443

== ENCOUNTER 2019-11-07 18:17 | Emergency (ER) | payer MEDICAID ==
[~2019-11-07] VITALS: Ht 175.3 cm; Wt 77.3 kg
[~2019-11-07 18:17] MED LIST changes: +ARIP10TA8 PO; +GABA-531 PO; -NALT50TA6 PO; -OLAN10TA3 PO; +PHEN100C23 PO; -PHENY100 PO
[2019-11-07] MEDS ORDERED: AMOX TR/POT CLAV 875 MG/125 MG TABLET PO ONE (18:30)
[2019-11-07] MEDS ORDERED: IBUPROFEN 800 MG TABLET PO ONE (18:30)
[2019-11-07 18:51] LABS: BASOPHILS % (AUTO) 0.9 % (0.0-2.0); EOSINOPHILS % (AUTO) 3.4 % (1.0-6.0); HEMATOCRIT 39.5 % (41-53); HEMOGLOBIN 13.1 g/dL (13.5-17.5); LYMPHOCYTES # (AUTO) 1.8 K/uL (1.0-4.8); LYMPHOCYTES % (AUTO) 13.8 % (22.0-44.0); MEAN CORPUSCULAR HEMOGLOBIN 27.9 pg (26.0-34.0); MEAN CORPUSCULAR HGB CONC 33.2 G/dL (31.0-37.0); MEAN CORPUSCULAR VOLUME 84 fL (80-100); MONOCYTES # (AUTO) 0.9 K/uL (0.1-1.0); MONOCYTES % (AUTO) 7.2 % (2.0-9.0); NEUTROPHILS # (AUTO) 9.8 K/uL (1.8-7.7); NEUTROPHILS % (AUTO) 74.7 % (40.0-70.0); PLATELET COUNT (AUTO) 263 K/uL (150-450); RED CELL DISTRIBUTION WIDTH 13.9 % (11.5-14.5)
[2019-11-07 18:59] LABS: ANION GAP 8 mmol/L (8-16); CALCIUM, TOTAL 8.7 mg/dL (8.8-10.5); CARBON DIOXIDE 28 mmol/L (22-29); CHLORIDE 105 mmol/L (98-107); CREATININE 1.19 mg/dL (0.60-1.30); GLOMERULAR FILTR. RATE CALC > 60 mL/min (>60); GLUCOSE,RANDOM 87 mg/dL (70-110); POTASSIUM 4.1 mmol/L (3.5-5.1); SODIUM SERUM 141 mmol/L (136-145); UREA NITROGEN, BLOOD 14 mg/dL (7-18)
[2019-11-07 19:05] LABS: ALANINE AMINOTRANSFERASE 32 U/L (12-78); ALBUMIN 3.5 g/dL (3.4-5.0); ALKALINE PHOSPHATASE 120 U/L (46-116); ASPARTATE AMINOTRANSFERASE 26 U/L (15-37); BILIRUBIN,TOTAL 0.4 mg/dL (0.1-1.0); TOTAL PROTEIN, SERUM 6.8 g/dL (6.4-8.2)
[2019-11-07] MEDS ORDERED: OxyCODONE HCL 5 MG IR TABLET PO ONE (19:15)
[2019-11-07 19:20] VITALS: BP 141/62
[2019-11-07] MEDS ORDERED: HYDROCODONE/ACETAMINOPHEN 5-325 MG TABLET PO ONE (19:30)
== END 2019-11-07 19:35 | disposition home or self-care (01) ==
LOC: EMS 18:21
DX: S60.221A Contusion of right hand, initial encounter (principal); E03.9 Hypothyroidism, unspecified; F32.9 Major depressive disorder, single episode, unspecified; F20.9 Schizophrenia, unspecified; Z79.899 Other long term (current) drug therapy; Z59.0 Homelessness; Y04.0XXA Assault by unarmed brawl or fight, initial encounter; Y93.89 Activity, other specified; Y92.89 Other specified places as the place of occurrence of the external cause; Y99.8 Other external cause status